=== PATIENT | female | born 2000 | race Caucasian/White ===

== ENCOUNTER 2020-07-25 18:03 | Inpatient (IN) | payer OTHER ==
[~2020-07-25] VITALS: Ht 175.3 cm; Wt 59.9 kg
[2020-07-25 18:09] VITALS: BP 125/87
[2020-07-25 18:29] LABS: URINE BILIRUBIN NEGATIVE (Negative); URINE BLOOD NEGATIVE (Negative); URINE CLARITY CLEAR; URINE COLOR YELLOW; URINE GLUCOSE-RANDOM* NEGATIVE (Negative); URINE KETONES NEGATIVE (Negative); URINE LEUKOCYTES-REFLEX NEGATIVE (Negative); URINE NITRITE-REFLEX NEGATIVE (Negative); URINE PROTEIN (DIPSTICK) NEGATIVE (Negative); URINE UROBILINOGEN 0.2 E.U./dl (0.2-1.0)
[2020-07-25] MEDS ORDERED: BIRTH CONTROL (18:40)
[2020-07-25 18:56] LABS: ABSOLUTE NEUTROPHILS 14.6 thou/uL (1.4-8.2); BASOPHILS 0.2 % (0.0-2.0); EOSINOPHILS 0.3 % (0.0-3.0); HEMATOCRIT 36.9 % (37.0-47.0); HEMOGLOBIN 12.5 gm/dL (12.0-15.0); LYMPHOCYTES 11.7 % (24.0-44.0); MCH 32.8 pg (26.0-34.0); MCHC 33.9 g/dL (28.0-37.0); MCV 96.8 fL (80.0-100.0); MONOCYTES 3.4 % (1.0-8.0); PLATELET COUNT 553 thou/uL (150-400); POLYS 84.4 % (36.0-66.0); RBC 3.81 mil/uL (4.20-5.00); RDW 12.7 % (10.5-14.5); WBC 17.3 thou/uL (4.0-11.0)
[2020-07-25 19:12] LABS: CALCIUM 9.2 mg/dL (8.5-10.1); CREATININE 0.9 mg/dL (0.6-1.0); POTASSIUM 3.5 mmol/L (3.5-5.1)
[2020-07-25 19:16] LABS: ALBUMIN 3.1 g/dL (3.4-5.0); TOTAL BILIRUBIN 0.3 mg/dL (0.2-1.0); TOTAL PROTEIN 9.2 g/dL (6.4-8.2)
[2020-07-25 23:16] VITALS: BP 113/58
--- NOTE | 2020-07-26 00:53 | NUR ---
PT MOTHER NOTIFIED THIS NURSE OF PT HAVING A RASH ON FACE. THIS NURSE OBSERVED THAT THE PT HAD DEVELOPED A RASH THAT STARTED ON FACE AND PROGRESSED TO CHEST. DR MENDIOLA NOTIFIED AND ASSESSED PT. 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 DR MENDIOLA ORDERED 1000MG OF TYLENOL TO BE ADMINISTERED.
--- NOTE | 2020-07-26 01:10 | NUR ---
LILIAN NOTIFIED OF PT REACTION TO VANCOMYCIN, ORDERS GIVEN AND FOLLOWED.
[2020-07-26 01:31] VITALS: BP 127/68
[2020-07-26 04:10] LABS: CALCIUM 7.7 mg/dL (8.5-10.1); CREATININE 0.8 mg/dL (0.6-1.0); POTASSIUM 3.2 mmol/L (3.5-5.1)
--- NOTE | 2020-07-26 04:32 | NUR ---
PT ADMITTED TO THE FLOOR AROUND 0135, ALERT AND ORIENTED, C/O ABDOMINAL PAIN OF A 10/22, SR ON THE MONITOR, ADMISSION ASSESSMENTS AND HISTORY COMPLETED, REMAINS NPO AFTER MIDNIGHT, LAYING IN BED; WILL CONTINUE TO MONITOR AND FOLLOW POC
[2020-07-26 04:56] LABS: HEMATOCRIT 27.7 % (37.0-47.0); MCH 33.4 pg (26.0-34.0); MCHC 34.2 g/dL (28.0-37.0); MCV 97.8 fL (80.0-100.0); RBC 2.83 mil/uL (4.20-5.00); RDW 12.5 % (10.5-14.5)
[2020-07-26 04:59] LABS: HEMOGLOBIN 9.5 gm/dL (12.0-15.0)
[2020-07-26 06:01] VITALS: BP 91/61
[2020-07-26 08:20] VITALS: BP 100/48
[2020-07-26 11:30] VITALS: BP 100/60
--- NOTE | 2020-07-26 13:55 | NUR ---
AAOX4. MOTHER AT BEDSIDE. ABD PAIN PERSISTS, TREATED WITH FENTANYL. ZOSYN AND IVF ADMIN ORDERED. SR PER TELE. DENIES CP, SOA.
[2020-07-26 15:30] VITALS: BP 114/73
[2020-07-26 20:15] VITALS: BP 105/69
[2020-07-27 04:18] LABS: ALBUMIN 2.1 g/dL (3.4-5.0); CALCIUM 8.3 mg/dL (8.5-10.1); CREATININE 0.7 mg/dL (0.6-1.0); MAGNESIUM 1.7 mg/dL (1.8-2.4); POTASSIUM 3.5 mmol/L (3.5-5.1); TOTAL BILIRUBIN 0.2 mg/dL (0.2-1.0); TOTAL PROTEIN 6.8 g/dL (6.4-8.2)
[2020-07-27 04:29] LABS: HEMATOCRIT 27.7 % (37.0-47.0); HEMOGLOBIN 9.6 gm/dL (12.0-15.0); MCH 33.8 pg (26.0-34.0); MCHC 34.6 g/dL (28.0-37.0); MCV 97.7 fL (80.0-100.0); RBC 2.84 mil/uL (4.20-5.00); RDW 12.5 % (10.5-14.5); WBC 12.2 thou/uL (4.0-11.0)
[2020-07-27 06:15] VITALS: BP 155/61
--- NOTE | 2020-07-27 07:30 | NUR ---
PT SLEPT MIMIMALLY THROUGHOUT THE NIGHT R/T PAIN AND FREQUENT BATHROOM NEEDS. NPO SINCE MN, BOWEL PREP FOR COLONOSCOPY.
[2020-07-27 07:35] VITALS: BP 108/72
[2020-07-27 08:49] LABS: APTT 27.7 Seconds (24.5-32.8); PROTIME 10.3 Seconds (9.3-11.4)
--- NOTE | 2020-07-27 10:16 | NUR ---
ASSESSMENT: CM REVIEWED CHART AND SPOKE WITH PATIENT AND HER MOTHER WHO IS AT THE BEDSIDE. PT IS ALERT AND ORIENTED X4. PT WAS ADMITTED AFTER HAVING ABDOMINAL PAIN AND PELVIC MASS. PT LIVES IN A HOUSE WITH HER SISTER. PT IS FULLY INDEPENDENT WITH ADLS AND AMBULATION. PT HAS NO PAST HX OF HH. PT IS CURRENTLY ON IV ANBX. PT IS TO HAVE A COLONOSCOPY TODAY. POSSIBLE PLANS THEN TO GO TO IR FOR ABSESS DRAINAGE AND MAY NEED REPEAT CT. PT IS HOPEFUL THAT SHE WILL HAVE NO NEEDS AT THE TIME OF DISCHARGE. CM WILL CONTINUE TO FOLLOW TO ASSIST NEEDED.
--- NOTE | 2020-07-27 12:49 | HC ---
[facility] [place] [address] CONSULTATION Name: JAMES WEEKS Room #: 200-I ADM IN M.R.#: [id number] Admission: 07/25/20 Attend Phys: Betito Lema Discharge: Date of : 99 Report #: [id number] THIS REPORT FOR: cc: Quoc Kruger Bret S. DO Brown, Randal L. MD ~ GASTROINTESTINAL CONSULTATION HISTORY OF PRESENT ILLNESS: The patient is a very pleasant 20-year-old female I have been asked to see for further evaluation of her GI complaints. Apparently, she was in otherwise normal state of health approximately 4 weeks ago when she began having significant right lower and left lower quadrant abdominal pain. She also noted a lot of bloating. She did not have any significant change in her bowel pattern and no nausea or vomiting at that time. She did have a profound lethargy and fatigue that has associated her GI symptoms over the course of the last 4 weeks. She noted no rectal bleeding. She was evaluated by a diesel technician and suspected to have pelvic inflammatory disease and was treated with antibiotics with some improvement. She was seen in the Emergency Department at [facility] at which time a CT revealed evidence of enteric inflammation, small bowel to be specific and was thought to have enteritis and was sent home on pain medications. She called her diesel technician back shortly thereafter and he asked her to resume the antibiotics he had given her and she felt quite a bit better for a couple of weeks, but then developed significant abdominal pain similar to her prior presentation. Her medical history is otherwise unremarkable. She takes no medications. SOCIAL HISTORY: Admits to marijuana use on occasion. Does not drink significantly. She denies other drugs and/or smoking tobacco. FAMILY HISTORY: Negative for inflammatory bowel disease or colon cancer. SOCIAL HISTORY: I do not have any medications from home except for the antibiotics she took. REVIEW OF SYSTEMS: Positive for weight loss of 5-10 pounds. She denies head, eyes, ears, nose or throat complaints. She denies chest pain, chest palpitation, chest pressure, cough, shortness of breath, wheezing, genitourinary, musculoskeletal or neuropsychiatric complaints otherwise. MEDICATIONS: Currently include Solu-Medrol 125 mg, this was a one-time push and then she is also on scheduled methylprednisolone as well. Zofran, vancomycin, fentanyl p.r.n. PHYSICAL EXAMINATION: GENERAL: The patient is afebrile. VITAL SIGNS: Stable. [facility] [address] [place] [address] CONSULTATION Name: JAMES WEEKS Room #: 200-I ADM IN [facility].#: [id number] Admission: 07/25/20 Attend Phys: Betito Lema Discharge: Date of : 99 Report #: [id number] HEENT: Nonicteric. NECK: No JVD, thyromegaly or bruits. CARDIOVASCULAR: Regular. LUNGS: Clear. ABDOMEN: Soft, but tender throughout. No rebound or guarding. No stigmata of chronic liver disease. No abnormal masses or bruits. There is slight abdominal distention and tenderness particularly in the right lower quadrant, in the periumbilical region. EXTREMITIES: Deferred. NEUROLOGICAL: Deferred. RECTAL: Deferred. PERTINENT LABORATORY DATA: Include white count 17.3, hemoglobin 12.5, platelet count 553 with a left shift. Sed rate 65. Chemistry is notable for potassium 3.2, sodium 134, calcium 7.7. CRP 216 and her serum was negative. Her IBD serology is pending and her COVID is negative. CT of the abdomen and pelvis, several loops of mid to distal small bowel within the lower abdomen and pelvis demonstrates circumferential mural thickening and hyperenhancement and then there is an irregular right pelvic mass with involvement of the pelvic sidewall, which could be related to abscess or inflammatory process and then moderate ascites and then no evidence of appendicitis. ASSESSMENT AND PLAN: In summary, the patient has a clinical presentation consistent with Crohn's disease. She may indeed have had some fistulization into the pelvis, but there is no evidence of acute peritonitis at least by exam, without evidence of rebound or significant guarding. I suspect that there is definitely no evidence of free air or free small bowel perforation. This probably is a process that has been recurring over the course of the last several weeks. For small bowel Crohn's, the diagnosis can be challenging and may require surgery. We will proceed first with an attempt to do colonoscopy to assess the proximal colon and terminal ileum to see if the diagnosis can be established. We will follow up her IBD serology. I hesitate to start her on prednisone at this point opting really for prompt colonoscopy and definitive treatment once a diagnosis has been established. I think it is reasonable to have General Surgery follow concurrently. In patients with significant Crohn's disease, the treatment usually is acute steroids and biologic to help prevent relapse and maintain remission and decrease complications requiring hospitalization and surgery going forward. We appreciate the opportunity to participate in her care and we will follow concurrently. <ELECTRONICALLY SIGNED> By: Isaiah Gan MD 07/27/20 1249 [id number] Mauricio Tavares MD /nt
[2020-07-27 15:24] VITALS: BP 121/71
--- NOTE | 2020-07-27 16:06 | NUR ---
PT RESTING COMFORTABLY TODAY. STILL COMPLAINS OF MODERATE ABDOMINAL PAIN. PT HAD COLONOSCOPY TODAY. PT WAS NOT TAKEN TO IR FOR DRAIN PLACEMENT, PROVIDERS HAVE NOT CONFIRMED WHAT POC IS IN REGARDS TO MOST RECENT CT SCAN. MAG REPLACED PER [facility] PROTOCAL. PT AFEBRILE, ADEQUATE UOP, BM, APPROPRIATE APPETITE. MOTHER AT BEDSIDE. PT AND MOTHER HAVE BEEN UPDATED AND EDUCATED ON PT CONDITION AND POC. PT PROGRESSING TOWARDS POC.
[2020-07-27 20:45] VITALS: BP 105/62
[2020-07-28 04:44] VITALS: BP 104/63
[2020-07-28 05:02] LABS: HEMATOCRIT 25.6 % (37.0-47.0); HEMOGLOBIN 8.9 gm/dL (12.0-15.0); MCH 33.7 pg (26.0-34.0); MCHC 34.6 g/dL (28.0-37.0); MCV 97.4 fL (80.0-100.0); RBC 2.63 mil/uL (4.20-5.00); RDW 12.3 % (10.5-14.5); WBC 8.7 thou/uL (4.0-11.0)
[2020-07-28 05:38] LABS: CALCIUM 8.2 mg/dL (8.5-10.1); CREATININE 0.8 mg/dL (0.6-1.0); POTASSIUM 3.3 mmol/L (3.5-5.1)
[2020-07-28 07:17] VITALS: BP 109/77
--- NOTE | 2020-07-28 08:24 | NUR ---
ASSUME CARE 1900. PT/VITALS STABLE. INTERMITTENT DULL ABDO PAIN. UP AD LANDY. SR ON MONITOR. ASSESSMENT CHARTED. PROGRESSING MODERATELY TO POC.NO DISTRESS NOTED THROUGH THE NIGHT. PLAN IS TO EVALUATE MASS FURTHER AND POSSIBLE DISCHARGE WITHIN A FEW DAYS. WILL CONTINUE TO MONITOR AND FOLLOW WITH POC
--- NOTE | 2020-07-28 10:26 | NUR ---
ON-GOING ASSESSMENT: CM REVIEWED CHART. PT REMAINS ON IV ANBX FOR OVARIAN ABSESS. ID HAS BE CONSULTED TO ASSIST WITH ANTIBIOTICS AND DETERMINE DURATION. POSSIBLE PLANS OF REPEAT CT SOON. CM WILL CONTINUE TO FOLLOW TO ASSIST NEEDED.
[2020-07-28 11:35] VITALS: BP 120/86
--- NOTE | 2020-07-28 12:13 | NUR ---
PT IS AXOX4, TEARFUL. PT WANTS TO GO HOME, PAIN IS MORE OF A DISCOMFORT. PT SEEN BY OBGYN (DR MOELLER). PT AND PT MOTHER REQUEST RECORDS BE SENT TO [facility] FAX TO DR MALIA WEBER . PT MOTHER STATES THAT OBGYN IS AWAITING RECORDS TO BE SENT. PT EDUCATED ON POC FOR IV ABX, AND PLAN FOR CT SCAN IN A DAY OR TWO TO DETERMINE IF TREATMENT IS GOING WELL. EXPLAINED ABSCESS IS TOO SMALL TO DRAIN WHICH IS WHY PT IS ON ABX TREATMENT, PER DR ORTIZ. DR RUANO CONSULTED. CONCERNS NOTED IN THIS DOCUMENTATION.
[2020-07-28 15:10] VITALS: BP 119/85
[2020-07-28 20:00] VITALS: BP 128/80
[2020-07-29 04:45] VITALS: BP 127/76
--- NOTE | 2020-07-29 05:08 | NUR ---
ASSUME CARE 1900. PT/VITALS STABLE. NO PAIN INDICATED. UP AD LANDY. SR ON MONITOR. ASSESSMENT CHARTED. PROGRESSING WELL WITH POC. PLAN IS TO CONTINUE WITH ABX THERAPY AND POSSIBLE DISCHARGE WITHIN A FEW DAYS. NO DISTRESS NOTED. WILL CONTINUE TO MONIOR AND FOLLOW WITH POC
[2020-07-29 07:47] VITALS: BP 113/80
[2020-07-29 07:53] LABS: CALCIUM 8.3 mg/dL (8.5-10.1); CREATININE 0.8 mg/dL (0.6-1.0); MAGNESIUM 1.3 mg/dL (1.8-2.4); POTASSIUM 3.1 mmol/L (3.5-5.1)
[2020-07-29 08:27] LABS: HEMATOCRIT 26.7 % (37.0-47.0); HEMOGLOBIN 9.3 gm/dL (12.0-15.0); MCH 33.4 pg (26.0-34.0); MCHC 34.7 g/dL (28.0-37.0); MCV 96.1 fL (80.0-100.0); RBC 2.77 mil/uL (4.20-5.00); RDW 12.6 % (10.5-14.5); WBC 6.1 thou/uL (4.0-11.0)
[2020-07-29] MEDS ORDERED: AUGMENTIN 875-1 EACH PO (11:33)
--- NOTE | 2020-07-29 11:50 | NUR ---
PT IS AXOX4, PLEASANT. PT MOTHER AT THE BEDSIDE. DR MCFARLAND CONSULTED, GI SPECIAL INVESTIGATION UNIT INVESTIGATOR CONSULTED, DR RUANO CONSULTED. POC IS TO DISCHARGE PT WITH FOLLOW UP WITH DR MCFARLAND AND DR ORTIZ. DISCHARGE EDUCATION CONDUCTED. DISCUSSED FOLLOW UP APPTS, MEDICATIONS, AND NOTIFYING DR OF ANY CHANGES. NO CONCERNS AT THIS TIME. PT TO DISCHARGE HOME WITH MOTHER VIA PERSONAL VEHICLE.
[2020-07-29 11:59] VITALS: BP 125/91
[2020-07-29 12:31] VITALS: BP 125/91
--- NOTE | 2020-07-29 14:05 | HC ---
[facility] [place] [address] CONSULTATION Name: JAMES WEEKS Room #: 200-I [facility] IN M.R.#: [id number] Admission: 07/25/20 Attend Phys: Betito Lema Discharge: 07/29/20 Date of : 99 Report #: [id number] THIS REPORT FOR: cc: Quoc Kruger Bret S. DO Barry, Joseph W. MD ~ DATE OF SERVICE: 07/28/2020 INFECTIOUS DISEASE CONSULTATION ATTENDING PHYSICIAN: Dr. Lema REASON FOR EVALUATION: Right-sided pelvic mass versus abscess. HISTORY OF SUBJECTIVE: Chart reviewed, the patient examined. This is a 20-year-old woman presented to the Emergency Room with diffuse abdominal pain started the day prior to admission; however, it has been intermittent and worsened during that particular time. Apparently, she was evaluated 3 weeks prior in different Emergency Room, treated for possible infection, given pain medicines, seen in followup with SCARFING MACHINE OPERATOR, noted they have been somewhat concerned about endometriosis. On evaluation, she was in significant pain. Urinalysis was otherwise unremarkable. CBC showed a markedly elevated white count of 17.3. testing was negative. Lactic acid was 0.7. Ultrasound shows large amount of free fluid, probable left ovarian hemorrhagic cyst, bilateral ovaries, otherwise normal; however, the CT is remarkable for ____ mid to distal small bowel within the lower abdomen and pelvis, circumferential mural wall thickening, question of enteritis, also irregular right pelvic mass involving the pelvic sidewall ____ 4-5 cm in size, question of abscess versus could not exclude malignant process, did have moderate ascites, nodularity with the small bowel mesentery as well. Has had additional evaluations, underwent colonoscopy yesterday, which was unrevealing. Empirically started on antibiotics with Zosyn. Most recent white count was 8.7. Generally, she feels significantly better. Denies significant pain at this point. She has been afebrile. ALLERGIES: Listed to VANCOMYCIN. CURRENT MEDICATIONS: Include Zosyn, p.r.n. analgesics and antiemetics. PAST MEDICAL HISTORY: Otherwise unrevealing. Previous tonsillectomy, has known ovarian cyst. SOCIAL HISTORY: Occasional ethanol, smokes E-cigarettes. Has used marijuana in the last 3 months. Apparently sexually active with 1 partner. FAMILY HISTORY: Noncontributory. [facility] [address] [place] [address] CONSULTATION Name: JAMES WEEKS Room #: 200-I [facility] IN ..#: [id number] Admission: 07/25/20 Attend Phys: Betito Lema Discharge: 07/29/20 Date of : 99 Report #: [id number] REVIEW OF SYSTEMS: Otherwise, unremarkable. PHYSICAL EXAMINATION: GENERAL: She is somewhat lethargic, appears mildly undernourished, ylei-yc-dkkimkcg distress. VITAL SIGNS: Temperature 97.9, pulse 74, respirations 18, blood pressure 109/77. SKIN: Warm, dry, no rashes. HEENT: Normocephalic. Extraocular muscles are intact. NECK: Supple. LUNGS: Generally clear to auscultation bilaterally. HEART: Regular rate, do not appreciate any murmur. ABDOMEN: Soft. No percussion tenderness. Just mild degree of tenderness favoring the right side. There are no peritoneal signs. GENITOURINARY AND RECTAL: Deferred. LABORATORY DATA: Sodium 141, potassium 3.3, chloride 107, bicarbonate 23, anion gap of 11, BUN and creatinine 12 and 0.8, glucose of 87. CBC: White count 8.7, H and H 8.9 and 25.6, platelets of 404. ASSESSMENT: Abdominal pain and multiple abnormalities on imaging including possible enteritis versus pelvic mass or abscess, fairly unremarkable colonoscopy. Biopsies have been taken, with the lack of diagnosis, we will continue empiric therapy with Zosyn noted. She clinically feels better. She had some response in terms of decreased white count. Noted plans for possible repeat imaging at this point, apparently there is not felt to be access to a drainable fluid collection. Discussed in detail with the patient and her mother. We will add incentive spirometry. <ELECTRONICALLY SIGNED> By: Francisco Kelly MD 07/29/20 1405 1034 1232 Francisco Kelly MD /nt
--- NOTE | 2020-07-29 15:01 | P ---
[facility] [place] [address] [place] [address] PROCEDURE REPORT Name: JAMES WEEKS Room #: 200-I [facility] IN M.R.#: [id number] Admission: 07/25/20 Attend Phys: Betito Lema Discharge: 07/29/20 Date of : 99 Report #: [id number] THIS REPORT FOR: cc: Quoc Kruger Bret S. DO McElhinney, Christian C. MD ~ DATE OF SERVICE: 07/27/2020 PROCEDURE PERFORMED: Colonoscopy with biopsies. HISTORY OF PRESENT ILLNESS: The patient is a 20-year-old female with lower abdominal pain. She underwent a CT scan of the abdomen and pelvis on 07/25/2020 showing several loops of mid to distal small bowel within the lower abdomen with circumferential mural thickening and hyper-enhancement. Differential considerations include nonspecific enteritis, infectious versus inflammatory process, irregular right pelvic mass with involvement of the pelvic sidewall, fluid centrally, 4.9 x 4.0 x 4.6 cm, may be an abscess, inflammatory process or malignant process would be difficult to exclude, moderate ascites with nodularity within the small mesentery and peritoneal thickening. Enlarged lymph nodes were also noted. No definite evidence of appendicitis. The patient has an elevated white count of 17,000 on admission. She has been on IV Zosyn. White count today is 12.2. She does continue to have abdominal pain, but is improving clinically. No previous history of colonoscopy. test is negative. Plan is for colonoscopy. DESCRIPTION OF PROCEDURE: The risks and benefits of the procedure were explained to the patient, those risks including but not limited to bleeding, perforation and the risk of sedation. She understood these risks and gave informed consent. Sedation was given using propofol per anesthesia. Next, a digital rectal exam was initially performed, which was normal. Next, using a standard Olympus colonoscope, the scope was placed in the patient's anus and advanced under direct vision to the cecum. The overall prep was excellent. The cecum and ileocecal valve were normal in appearance. The terminal ileum was intubated. I was able to advance the scope approximately 20-30 cm within the terminal ileum, all of which was normal. No evidence of inflammation or ileitis was noted. At this point, the scope was then brought back up into the patient's colon and the scope was slowly withdrawn. The ascending, transverse, descending and sigmoid colon were all normal. Random biopsies were obtained today to rule out the possibility of microscopic colitis. On retroflexion, small internal hemorrhoids were noted. No evidence of bleeding. The scope was then withdrawn and the procedure terminated. The patient tolerated the procedure well. IMPRESSION: 1. Small internal hemorrhoids. 2. Otherwise, normal colonoscopy. No evidence of inflammation in the terminal [facility] [address] [place] [address] PROCEDURE REPORT Name: JAMES WEEKS Room #: 200-I DIS IN M.R.#: [id number] Admission: 07/25/20 Attend Phys: Betito Lema Discharge: 07/29/20 Date of : 99 Report #: [id number] ileum on exam today. RECOMMENDATIONS: 1. Continue IV antibiotics. 2. Suspect inflammatory process on the CT scan, suggested tubo-ovarian abscess, both TEST PREPARATION TUTOR and General Surgery are following. There is a discussion of possibly draining some of the fluid in the pelvis as well. We will continue to monitor. Thank you for allowing me to participate in her care. <ELECTRONICALLY SIGNED> By: Isaiah Gan MD 07/29/20 1501 [id number] [id number] Isaiah Gan MD /nt
--- NOTE | 2020-07-30 19:07 | PATH ---
[facility] [address] [place] [address] PATHOLOGY RPT PROCEDURE Name: JAMES WEEKS PERRY Room #: 200-I DIS IN M.R.#: [id number] Admission: 07/25/20 Date of : 99 Discharge: 07/29/20 Report #: [id number] Path Case #: [id number] [facility] Accession Number: [id number] . 01 Material submitted: . colon - BIOPSY RANDOM COLON . 01 Clinical history: . ABDOMINAL PAIN COLONOSCOPY . 02 Diagnosis: Large intestine, random colon R/O microscopic colitis, endoscopic biopsy: - Focal nonspecific reactive/hyperplastic changes. - Negative for active colitis. - Negative for microscopic colitis. - Negative for dysplasia or malignancy. (IUV:carli; 07/30/2020) QMS 07/30/2020 1327 Local . 02 Comment: Sections of colon biopsy tissues show crypts at regular intervals and no increase in cellularity of lamina propria. There are no granulomas. The collagen layer underneath the epithelium is not thickened. There is no distortion in crypt architecture as well. There is no evidence of dysplasia. (IUV:carli; 07/30/2020) . 02 Electronically signed: . Fern Alarcon MD, Pathologist NPI- [id number] . 01 Gross description: . The specimen is received in formalin, labeled "JAMES WEEKS biopsy random colon rule out microscopic colitis" and consist of multiple fragments of soft maddox tissue measuring up to 0.6 cm. Entirely submitted in A1.([facility]; 07/29/2020) TANVIR/TANVIR 07/30/2020 1326 Local . 02 Pathologist provided ICD-10: R10.9, Z12.11 . 02 CPT . 253233 Specimen Comment: A courtesy copy of this report has been sent to [phone] Specimen Comment: [phone], [address] [address] PATHOLOGY RPT PROCEDURE Name: JAMES WEEKS PERRY Room #: 200-I [facility] IN M.R.#: [id number] Admission: 07/25/20 Date of : 99 Discharge: 07/29/20 Report #: [id number] Path Case #: [id number] Specimen Comment: Report sent to ,DR WEBER / DR VIVAR Performed at: [address] [facility] [address], [place], [place] [id number] MD Siddhartha Maurice MD Phone: [phone] Performed at: [address] [id number] MD Fern Alarcon MD Phone: [phone]
== END 2020-07-29 14:02 | disposition home or self-care (01) | DRG 871 ==
LOC: ER 18:03 → EROBS 21:20 → 2N 21:20
PROVIDERS: Emergency Medicine; Internal Medicine; Nurse Practitioner Family; Radiology Vascular & Interventional Radiology; ADMIT Hospitalist; ATTEND Hospitalist
PROC: 0DBE8ZX Excision of Large Intestine, Via Natural or Artificial Opening Endoscopic, Diagnostic (ICD-10-PCS; principal; 2020-07-27)
DX: A41.9 Sepsis, unspecified organism (principal); E43 Unspecified severe protein-calorie malnutrition; R19.00 Intra-abdominal and pelvic swelling, mass and lump, unspecified site; K52.89 Other specified noninfective gastroenteritis and colitis; N73.8 Other specified female pelvic inflammatory diseases; N70.93 Salpingitis and oophoritis, unspecified; N83.209 Unspecified ovarian cyst, unspecified side; F12.90 Cannabis use, unspecified, uncomplicated; D64.9 Anemia, unspecified; K64.8 Other hemorrhoids; F17.200 Nicotine dependence, unspecified, uncomplicated; Z20.822 Contact with and (suspected) exposure to COVID-19; Z79.899 Other long term (current) drug therapy; Z72.89 Other problems related to lifestyle; Z88.1 Allergy status to other antibiotic agents
CPT/HCPCS: 10081; 62110; 62900; 70005